=== PATIENT | male | born 1975 | race Caucasian/White ===

== ENCOUNTER 2022-10-21 16:25 | Outpatient (RCR) | payer OTHER, SELFPAY | END 2022-11-13 15:24 | disposition home or self-care (01) | LOC: PT 16:25 | PROVIDERS: PCP Student in an Organized Health Care Education/Training Program; Visit Provider Student in an Organized Health Care Education/Training Program | DX: M79.10 Myalgia, unspecified site (principal); M50.30 Other cervical disc degeneration, unspecified cervical region; M54.59 Other low back pain | CPT/HCPCS: 97110; 97140; 97162 ==

== ENCOUNTER 2022-12-16 10:09 | Emergency (ER) | payer OTHER, SELFPAY ==
[2022-12-16] VITALS (21 sets, daily range): BP systolic 97–113; BP diastolic 60–66; PULSE 46–64; RESP 13–19; TEMP 36.7; O2SAT 95; BMI 23.6
--- NOTE | 2022-12-16 10:21 | ECG_ITS ---
The 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
--- NOTE | 2022-12-16 10:21 | XR_ITS ---
The [address] [address] Patient Name: MOHINI MAURICE MRN: [id number] date: 1975 Sex: M Assigned Patient Location: ED.MAIN Current Patient Location: ED.MAIN Accession/Order Number: [id number] Exam Date: 12/16/2022 10:38 Report Date: 12/16/2022 11:16 At the request of: VICKY KAPOOR Procedure: XR lumbar spine 2-3V EXAMINATION: XR lumbar spine 2-3V, [id number] HISTORY: low back pain, no trauma COMPARISON: CT abdomen/pelvis 11/28/2020 FINDINGS: There are 5 nonrib-bearing lumbar-type vertebral bodies. No acute fracture or suspicious osseous lesion. Spinal alignment is within normal limits. Moderate disc height loss and mild osteophytosis at L5-S1. Mild disc height loss and mild osteophytosis at L1-L2, similar. Soft tissues are within normal limits. XR/XR lumbar spine 2-3V IMPRESSION: 1. No acute osseous abnormality. 2. Moderate spondylosis at L5-S1, not appreciably changed compared with 11/28/2020. Electronically authenticated by: HILDA FLOYD Date: 12/16/2022 11:16
[2022-12-16 10:43] LABS: Basophils Absolute Auto 0.1 10^3/uL (0.0-0.1); Basophils Percent Auto 0.9 % (0.2-2.0); Eosinophils Absolute Auto 0.3 10^3/uL (0.0-0.7); Eosinophils Percent Auto 2.3 % (0.9-7.0); Hematocrit 41.5 % (42.0-54.0); Hemoglobin 14.3 g/dL (14.0-18.0); Immature Granulocytes Abs Auto 0.07 10^3/uL (0.00-0.03); Immature Granulocytes Pct Auto 0.6 % (0.0-0.5); Lymphocytes Absolute Auto 2.6 10^3/uL (1.2-3.8); Lymphocytes Percent Auto 23.6 % (20.5-60.0); Mean Corpuscular HGB Conc 34.5 g/dL (29.9-35.2); Mean Corpuscular Hemoglobin 29.7 pg (25.9-34.0); Mean Corpuscular Volume 86.3 fL (80.0-94.0); Mean Platelet Volume 10.4 fL (9.5-13.5); Monocytes Absolute Auto 0.6 10^3/uL (0.3-0.8); Monocytes Percent Auto 5.2 % (1.7-12.0); Neutrophils Absolute Auto 7.5 10^3/uL (1.4-6.5); Neutrophils Percent Auto 67.4 % (43.0-75.0); Platelet Count 195 10^3/uL (150-450); Red Blood Count 4.81 10^6/uL (4.70-6.10); White Blood Count 11.1 10^3/uL (4.0-11.0)
[2022-12-16 10:47] LABS: Bilirubin Urine NEGATIVE (NEGATIVE); Blood Urine NEGATIVE (NEGATIVE); Clarity Urine CLEAR (CLEAR); Color Urine LT. YELLOW (YELLOW); Glucose Urine UA NEGATIVE (NEGATIVE); Ketones Urine NEGATIVE (NEGATIVE); Leukocyte Esterase Urine NEGATIVE (NEGATIVE); Nitrite Urine NEGATIVE (NEGATIVE); Protein Urine NEGATIVE (NEG/TRACE); Urobilinogen Urine 0.2 EU/dL (0.2-1.0)
[2022-12-16 10:52] LABS: Bacteria Urine NONE SEEN #/HPF (NONE SEEN); Cast Seen? NONE SEEN #/LPF (NONE SEEN); Crystals Seen? None Seen #/HPF (None Seen); Mucus Urine NONE SEEN (NONE SEEN); RBC Urine NONE SEEN #/HPF (0-2); Squamous Epithelial Cell Urine RARE #/LPF (NONE/RARE); Urine Culture Indicated NO; WBC Urine NONE SEEN #/HPF (NONE SEEN)
[2022-12-16 10:58] LABS: BUN Creatinine Ratio 9.9; Calcium 9.2 mg/dL (8.5-10.1); Carbon Dioxide 33.4 mmol/L (21.0-32.0); Chloride 100 mmol/L (98-107); Estimated GFR (African America 60 (>=60); Estimated GFR (Non-African Ame 49 (>=60); Glucose 120 mg/dL (74-106); Potassium 3.4 mmol/L (3.5-5.1); Sodium 140 mmol/L (136-145)
--- NOTE | 2022-12-16 12:27 | ED_ITS ---
HPI - Back Pain/Injury General Chief Complaint: Back Pain/Injury Stated Complaint: ABD PAIN/BACK PAIN Time Seen by Provider: 12/16/22 10:16 Source: patient Mode of arrival: walk-in Limitations: no limitations History of Present Illness HPI Narrative: 47-year-old male presents for lower back pain. He was having pain and he felt like he was going pass out at work. It doesn't radiate. He's had no dysuria or hematuria and there is been no injury or fall. He is feeling much better now. He's been having symptoms for the past week or so. Related Data Home Medications Medication Instructions Recorded Confirmed alprazolam 0.5 mg tablet 0.5 mg PO QDAY PRN anxiety 12/16/22 12/16/22 atorvastatin 40 mg tablet 40 mg PO QDAY 12/16/22 12/16/22 gabapentin 400 mg capsule 400 mg PO Q12H 12/16/22 12/16/22 hydrochlorothiazide 12.5 mg tablet 12.5 mg PO QDAY 12/16/22 12/16/22 isosorbide mononitrate 30 mg 30 mg PO QDAY 12/16/22 12/16/22 tablet,extended release 24 hr losartan 25 mg tablet 25 mg PO QDAY 12/16/22 12/16/22 metaxalone 800 mg tablet 800 mg PO TID 12/16/22 12/16/22 metoprolol tartrate 100 mg tablet 100 mg PO Q12H 12/16/22 12/16/22 nifedipine 60 mg tablet,extended 60 mg PO Q12H 12/16/22 12/16/22 release potassium chloride 10 mEq 10 meq PO QDAY 12/16/22 12/16/22 tablet,extended release sertraline 100 mg tablet 200 mg PO Q24H 12/16/22 12/16/22 Previous Rx's Medication Instructions Recorded ibuprofen 800 mg tablet 800 mg PO Q8H PRN pain #20 tabs 12/16/22 methocarbamol 750 mg tablet 750 mg PO Q8H #20 tabs 12/16/22 Allergies Allergy/AdvReac Type Severity Reaction Status Date / Time No Known Drug Allergies Allergy Verified 12/16/22 10:14 Review of Systems ROS Narrative A ten point review of systems is negative except as noted above. Exam Narrative Exam Narrative: Nurses note and vital signs reviewed and patient is not hypoxic. General: The patient appears well and in no apparent distress. Patient is resting comfortably on cart. Skin: Warm, dry, no pallor noted. There is no rash noted. Head: Normocephalic, atraumatic Eye: Normal conjunctiva, no drainage Ears, Nose, Mouth, and Throat: oral mucosa is moist. Nares patent. Cardiovascular: Regular Rate and Rhythm Respiratory: Patient is in no distress, no accessory muscle use, lungs are clear to auscultation, no wheezing, rales or rhonchi Back: non-tender, no CVA tenderness bilaterally to percussion. GI: no tenderness to palpation, no masses appreciated. No rebound, guarding, or rigidity noted. Musculoskeletal: The patient has no evidence of calf tenderness, no pitting edema, symmetrical pulses noted bilaterally; back has no bruise or rash. Neurological: A&O, normal speech Psychiatric: Cooperative Constitutional Vital Signs, click to edit/add: Last Vital Signs Temp 98.0 F 12/16/22 10:14 Pulse 46 L 12/16/22 11:45 Resp 14 12/16/22 11:45 BP 106/66 12/16/22 11:45 Pulse Ox 95 12/16/22 10:14 Course Vital Signs Vital signs: Vital Signs Temperature 98.0 F 12/16/22 10:14 Pulse Rate 64 12/16/22 10:14 Respiratory Rate 18 12/16/22 10:14 Blood Pressure 97/60 12/16/22 10:14 Pulse Oximetry 95 12/16/22 10:14 Temperature 98.0 F 12/16/22 10:14 Pulse Rate 46 L 12/16/22 11:45 Respiratory Rate 14 12/16/22 11:45 Blood Pressure 106/66 12/16/22 11:45 Pulse Oximetry 95 12/16/22 10:14 MDM - Back Pain/Injury MDM Narrative Medical decision making narrative: his workup is negative. X-ray shows unchanged mild degenerative changes. He'll be treated symptomatically. This point I do not suspect a kidney stone. Treatment diagnosis and follow-up were discussed with the patient. Differential Diagnosis Differential diagnosis: Likely other (lumbar strain, kidney stone, urinary tract infection, acute kidney injury) Lab Data Labs: Lab Results 12/16/22 Range/Units 10:25 WBC 11.1 H (4.0-11.0) 10^3/uL RBC 4.81 (4.70-6.10) 10^6/uL Hgb 14.3 (14.0-18.0) g/dL Hct 41.5 L (42.0-54.0) % MCV 86.3 (80.0-94.0) fL MCH 29.7 (25.9-34.0) pg MCHC 34.5 (29.9-35.2) g/dL RDW 13.0 (11.0-15.0) % Plt Count 195 (150-450) 10^3/uL MPV 10.4 (9.5-13.5) fL Neut % (Auto) 67.4 (43.0-75.0) % Lymph % (Auto) 23.6 (20.5-60.0) % [place] % (Auto) 5.2 (1.7-12.0) % Eos % (Auto) 2.3 (0.9-7.0) % Baso % (Auto) 0.9 (0.2-2.0) % Neut # (Auto) 7.5 H (1.4-6.5) 10^3/uL Lymph # (Auto) 2.6 (1.2-3.8) 10^3/uL [place] # (Auto) 0.6 (0.3-0.8) 10^3/uL Eos # (Auto) 0.3 (0.0-0.7) 10^3/uL Baso # (Auto) 0.1 (0.0-0.1) 10^3/uL Abs Immat Gran (auto) 0.07 H (0.00-0.03) 10^3/uL Imm/Tot Granulo (auto) 0.6 H (0.0-0.5) % Sodium 140 (136-145) mmol/L Potassium 3.4 L (3.5-5.1) mmol/L Chloride 100 (98-107) mmol/L Carbon Dioxide 33.4 H (21.0-32.0) mmol/L Anion Gap 10.0 BUN 15.0 (7.0-18.0) mg/dL Creatinine 1.52 H (0.70-1.30) mg/dL Est GFR ( Amer) 60 (>=60) Est GFR (Non-Af Amer) 49 L (>=60) BUN/Creatinine Ratio 9.9 Glucose 120 H (74-106) mg/dL Calcium 9.2 (8.5-10.1) mg/dL Urine Color Lt. yellow (YELLOW) Urine Clarity Clear (CLEAR) Urine pH 7.0 (5.0-9.0) Ur Specific [place] 1.010 (1.005-1.025) Urine Protein Negative (NEG/TRACE) mg/dL Urine Glucose (UA) Negative (NEGATIVE) mg/dL Urine Ketones Negative (NEGATIVE) mg/dL Urine Occult Blood Negative (NEGATIVE) Urine Nitrite Negative (NEGATIVE) Urine Bilirubin Negative (NEGATIVE) Urine Urobilinogen 0.2 (0.2-1.0) EU/dL Ur Leukocyte Esterase Negative (NEGATIVE) Urine RBC None seen (0-2) #/HPF Urine WBC None seen (NONE SEEN) #/HPF Ur Squamous Epith Cells Rare (NONE/RARE) #/LPF Urine Crystals None seen (None Seen) #/HPF Urine Bacteria None seen (NONE SEEN) #/HPF Urine Casts None seen (NONE SEEN) #/LPF Urine Mucus None seen (NONE SEEN) Ur Culture Indicated? No Discharge Plan Discharge Chief Complaint: Back Pain/Injury Clinical Impression: Strain of lumbar region Patient Disposition: Home, Self-Care Time of Disposition Decision: 12:25 Condition: Good Mode of Transportation: Private Vehicle Prescriptions / Home Meds: New ibuprofen 800 mg tablet 800 mg PO Q8H PRN (Reason: pain) Qty: 20 0RF methocarbamol 750 mg tablet 750 mg PO Q8H Qty: 20 0RF No Action alprazolam 0.5 mg tablet 0.5 mg PO QDAY PRN (Reason: anxiety) atorvastatin 40 mg tablet 40 mg PO QDAY gabapentin 400 mg capsule 400 mg PO Q12H hydrochlorothiazide 12.5 mg tablet 12.5 mg PO QDAY isosorbide mononitrate 30 mg tablet extended release 24 hr 30 mg PO QDAY losartan 25 mg tablet 25 mg PO QDAY metaxalone 800 mg tablet 800 mg PO TID metoprolol tartrate 100 mg tablet 100 mg PO Q12H nifedipine 60 mg tablet extended release 60 mg PO Q12H potassium chloride 10 mEq tablet extended release 10 meq PO QDAY sertraline 100 mg tablet 200 mg PO Q24H Instructions: Low Back Strain (ED) Stand Alone Forms: Portal Instructions Referrals: AILYN ESCOBAR [Physician] - 1 week
== END 2022-12-16 12:52 | disposition home or self-care (01) ==
PROVIDERS: Emergency Provider Emergency Medicine
DX: S39.012A Strain of muscle, fascia and tendon of lower back, initial encounter (principal); X58.XXXA Exposure to other specified factors, initial encounter; Z79.899 Other long term (current) drug therapy
CPT/HCPCS: 36415; 72100; 80048; 81001; 85025; 93005; 99285

== ENCOUNTER 2022-12-23 10:05 | Emergency (ER) | payer OTHER, SELFPAY ==
[2022-12-23] VITALS (20 sets, daily range): BP systolic 85–110; BP diastolic 47–80; PULSE 50–67; RESP 12–22; TEMP 36.4; O2SAT 95–100; BMI 30.3
[2022-12-23 10:15] LABS: Glucometer 127 mg/dL (74-106)
--- NOTE | 2022-12-23 10:15 | ED_ITS ---
HPI - General Adult General Chief complaint: Dizziness Stated complaint: LOW BLOOD PRESS HIGH SUGAR Time Seen by Provider: 12/23/22 10:14 Source: patient Mode of arrival: Wheelchair History of Present Illness HPI narrative: Patient is a 47-year-old male who is presenting to the Emergency Room with chief complaint Of feeling lightheaded, dizzy, near syncopal. Patient was at work, patient works at [employer]. Patient is at bedside as well. Patient does take blood pressure medications. Patient also has diabetes. Patient's blood sugar was checked, it is slightly elevated. Patient has a mild headache to bilateral frontal at the base of the skull. Patient has chronic neck pain, lumbar pain, patient has a outpatient MRI scheduled in the next few weeks. 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 Stratton from [facility]. No excessive working, starting this weekend. No acute events this weekend. No recent traveling, no trauma. Patient has been drinking adequate amount of liquids per his history. Patient has minimal nausea earlier work today, not currently. He has no vision or hearing changes. No nausea, vomiting or diarrhea the weekend. NO Other acute complaints . All systems are negative except as noted/marked. All systems reviewed and otherwise negative. . Nurses note and vital signs reviewed and patient is not hypoxic. General: The patient appears well and in no apparent distress. Patient is resting comfortably on cart. Patient is not toxic, lethargic, or listless Skin: Warm, dry, no pallor noted. There is no rash noted. No petechiae, purpura. . Multiple tattoos, no acute secondary signs of infection. Head: Normocephalic, atraumatic Eye: Normal conjunctiva, no drainage, EOMI. PERRL Ears, Nose, Mouth, and Throat: oral mucosa is moist. Nares patent. Mouth without vesicles. Cardiovascular: Regular Rate and Rhythm, no murmur, gallop, rub Respiratory: Patient is in no distress, no accessory muscle use, lungs are clear to auscultation, no wheezing, rales or rhonchi Back: non-tender, no CVA tenderness bilaterally to percussion. No CT LS midline pain GI: soft, Minimal right upper quadrant tenderness palpation, no peritoneal signs, no flank pain bilateral, no tenderness to palpation, no masses appreciated. No rebound, guarding, or rigidity noted. No flank pain bilateral, No distention Musculoskeletal: Patient has full range of motion of all of the extremities, no motor, sensory, or focal neurological deficits Neurological: A&O x3, normal speech Psychiatric: Cooperative Related Data Home Medications Medication Instructions Recorded Confirmed alprazolam 0.5 mg tablet 0.5 mg PO QDAY PRN anxiety 12/16/22 12/23/22 atorvastatin 40 mg tablet 40 mg PO QDAY 12/16/22 12/23/22 gabapentin 400 mg capsule 400 mg PO Q12H 12/16/22 12/23/22 hydrochlorothiazide 12.5 mg tablet 12.5 mg PO QDAY 12/16/22 12/23/22 isosorbide mononitrate 30 mg 30 mg PO QDAY 12/16/22 12/23/22 tablet,extended release 24 hr losartan 25 mg tablet 25 mg PO QDAY 12/16/22 12/23/22 metaxalone 800 mg tablet 800 mg PO TID 12/16/22 12/23/22 metoprolol tartrate 100 mg tablet 100 mg PO Q12H 12/16/22 12/23/22 nifedipine 60 mg tablet,extended 60 mg PO Q12H 12/16/22 12/23/22 release potassium chloride 10 mEq 10 meq PO QDAY 12/16/22 12/23/22 tablet,extended release sertraline 100 mg tablet 200 mg PO Q24H 12/16/22 12/23/22 Previous Rx's Medication Instructions Recorded ibuprofen 800 mg tablet 800 mg PO Q8H PRN pain #20 tabs 12/16/22 methocarbamol 750 mg tablet 750 mg PO Q8H #20 tabs 12/16/22 Allergies Allergy/AdvReac Type Severity Reaction Status Date / Time No Known Drug Allergies Allergy Verified 12/23/22 10:12 [facility] Medical History (Updated 12/23/22 @ 12:16 by Cabrera Marquis MD) Surgical History (Updated 12/23/22 @ 11:04 by Efren Nunes RN) Exam Constitutional Vital Signs, click to edit/add: Last Vital Signs Temp 97.5 F L 12/23/22 10:09 Pulse 64 12/23/22 12:11 Resp 17 12/23/22 12:11 BP 101/61 12/23/22 12:11 Pulse Ox 97 12/23/22 12:11 O2 Del Method Room Air 12/23/22 10:09 Course Vital Signs Vital signs: Vital Signs Temperature 97.5 F L 12/23/22 10:09 Pulse Rate 54 L 12/23/22 10:09 Respiratory Rate 18 12/23/22 10:09 Blood Pressure 85/47 L 12/23/22 10:09 Pulse Oximetry 95 12/23/22 10:09 Oxygen Delivery Method Room Air 12/23/22 10:09 Temperature 97.5 F L 12/23/22 10:09 Pulse Rate 64 12/23/22 12:11 Respiratory Rate 17 12/23/22 12:11 Blood Pressure 101/61 12/23/22 12:11 Pulse Oximetry 97 12/23/22 12:11 Oxygen Delivery Method Room Air 12/23/22 10:09 Medical Decision Making MDM Narrative Medical decision making narrative: Patient's potassium was slightly low at 3.4. Patient's urine showed trace ketones and patient's BUN and creatinine of slightly elevated. Patient does have chronic kidney renal insufficiency. Patient blood pressure did improve with 1 L of IV fluids. Patient was given a 2nd liter of IV fluids, blood pressure at 12:1 5 PM was approximately 100 over 60s. Patient increase fluids at home. Education on low potassium levels was discussed at bedside and on discharge paperwork. Patient will follow-up with PCP, and more poorly follow-up with artificial insemination technician to see if there is any medication changes or dosing regimens that need to be addressed. Patient understands, no questions or patient and discharge Lab Data Lab results reviewed: Yes I reviewed the patient's lab results Labs: Lab Results 12/23/22 12/23/22 Range/Units 10:12 10:42 WBC 10.3 (4.0-11.0) 10^3/uL RBC 4.59 L (4.70-6.10) 10^6/uL Hgb 13.6 L (14.0-18.0) g/dL Hct 40.0 L (42.0-54.0) % MCV 87.1 (80.0-94.0) fL MCH 29.6 (25.9-34.0) pg MCHC 34.0 (29.9-35.2) g/dL RDW 12.7 (11.0-15.0) % Plt Count 155 (150-450) 10^3/uL MPV 10.9 (9.5-13.5) fL Neut % (Auto) 71.9 (43.0-75.0) % Lymph % (Auto) 19.2 L (20.5-60.0) % [place] % (Auto) 5.0 (1.7-12.0) % Eos % (Auto) 2.3 (0.9-7.0) % Baso % (Auto) 1.0 (0.2-2.0) % Neut # (Auto) 7.4 H (1.4-6.5) 10^3/uL Lymph # (Auto) 2.0 (1.2-3.8) 10^3/uL [place] # (Auto) 0.5 (0.3-0.8) 10^3/uL Eos # (Auto) 0.2 (0.0-0.7) 10^3/uL Baso # (Auto) 0.1 (0.0-0.1) 10^3/uL Abs Immat Gran (auto) 0.06 H (0.00-0.03) 10^3/uL Imm/Tot Granulo (auto) 0.6 H (0.0-0.5) % Sodium 140 (136-145) mmol/L Potassium 3.4 L (3.5-5.1) mmol/L Chloride 103 (98-107) mmol/L Carbon Dioxide 32.5 H (21.0-32.0) mmol/L Anion Gap 7.9 BUN 17.0 (7.0-18.0) mg/dL Creatinine 1.47 H (0.70-1.30) mg/dL Est GFR ( Amer) >60 (>=60) Est GFR (Non-Af Amer) 51 L (>=60) BUN/Creatinine Ratio 11.6 Glucose 100 (74-106) mg/dL Calcium 9.2 (8.5-10.1) mg/dL Magnesium 2.1 (1.8-2.4) mg/dL Total Bilirubin 0.5 (0.2-1.0) mg/dL AST 21 (15-37) U/L ALT 25 (16-63) U/L Alkaline Phosphatase 68 (46-116) U/L Total Creatine Kinase 84 (39-308) U/L Troponin I High Sens 5.2 (4.0-76.1) pg/mL Total Protein 7.2 (6.4-8.2) g/dL Albumin 4.1 (3.4-5.0) g/dL Globulin 3.1 g/dL Albumin/Globulin Ratio 1.3 Urine Color Yellow (YELLOW) Urine Clarity Clear (CLEAR) Urine pH 6.0 (5.0-9.0) Ur Specific [place] 1.015 (1.005-1.025) Urine Protein Trace (NEG/TRACE) mg/dL Urine Glucose (UA) Negative (NEGATIVE) mg/dL Urine Ketones Trace A (NEGATIVE) mg/dL Urine Occult Blood Negative (NEGATIVE) Urine Nitrite Negative (NEGATIVE) Urine Bilirubin Negative (NEGATIVE) Urine Urobilinogen 0.2 (0.2-1.0) EU/dL Ur Leukocyte Esterase Negative (NEGATIVE) POC Glucose 127 H (74-106) mg/dL Potassium 3.4, chronic renal insufficiency, slightly worse today. ECG Data Attestation: I personally reviewed and interpreted this ECG as follows: (EKG interpretation. Normal sinus rhythm at 51 beats minute. Normal axis deviation. No acute ST elevation, no acute ectopy. QTC of 402.) Discharge Plan Discharge Chief Complaint: Dizziness Clinical Impression: Dizziness, Hypokalemia Patient Disposition: Home, Self-Care Condition: Good Prescriptions / Home Meds: No Action alprazolam 0.5 mg tablet 0.5 mg PO QDAY PRN (Reason: anxiety) atorvastatin 40 mg tablet 40 mg PO QDAY gabapentin 400 mg capsule 400 mg PO Q12H hydrochlorothiazide 12.5 mg tablet 12.5 mg PO QDAY isosorbide mononitrate 30 mg tablet extended release 24 hr 30 mg PO QDAY losartan 25 mg tablet 25 mg PO QDAY metaxalone 800 mg tablet 800 mg PO TID metoprolol tartrate 100 mg tablet 100 mg PO Q12H nifedipine 60 mg tablet extended release 60 mg PO Q12H potassium chloride 10 mEq tablet extended release 10 meq PO QDAY sertraline 100 mg tablet 200 mg PO Q24H ibuprofen 800 mg tablet 800 mg PO Q8H PRN (Reason: pain) Qty: 20 0RF methocarbamol 750 mg tablet 750 mg PO Q8H Qty: 20 0RF Instructions: Hypokalemia (ED), Lightheadedness (ED), Dizziness (ED) Additional Instructions: Take daily men's multivitamins to help increase her potassium along with diet changes. Follow-up with your artificial insemination technician on the dosing of your blood pressure medication if there needs to be an adjustment. Follow-up with PCP as needed. Increase fluids. Stand Alone Forms: Portal Instructions Referrals: Physician,Non-Staff, MD [Primary Care Provider] - 1 week
--- NOTE | 2022-12-23 10:30 | ECG_ITS ---
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
[2022-12-23] MEDS: 0.9 % SODIUM CHLORIDE 1,000 ML 999 ML IV (10:49)
[2022-12-23 11:24] LABS: Bilirubin Urine NEGATIVE (NEGATIVE); Blood Urine NEGATIVE (NEGATIVE); Clarity Urine CLEAR (CLEAR); Color Urine YELLOW (YELLOW); Glucose Urine UA NEGATIVE (NEGATIVE); Ketones Urine TRACE mg/dL (NEGATIVE); Leukocyte Esterase Urine NEGATIVE (NEGATIVE); Nitrite Urine NEGATIVE (NEGATIVE); Protein Urine TRACE mg/dL (NEG/TRACE); Specific Gravity Urine 1.015 (1.005-1.025); Urobilinogen Urine 0.2 EU/dL (0.2-1.0)
[2022-12-23 11:25] LABS: Basophils Absolute Auto 0.1 10^3/uL (0.0-0.1); Eosinophils Absolute Auto 0.2 10^3/uL (0.0-0.7); Eosinophils Percent Auto 2.3 % (0.9-7.0); Hemoglobin 13.6 g/dL (14.0-18.0); Immature Granulocytes Abs Auto 0.06 10^3/uL (0.00-0.03); Immature Granulocytes Pct Auto 0.6 % (0.0-0.5); Lymphocytes Percent Auto 19.2 % (20.5-60.0); Mean Corpuscular Hemoglobin 29.6 pg (25.9-34.0); Mean Corpuscular Volume 87.1 fL (80.0-94.0); Mean Platelet Volume 10.9 fL (9.5-13.5); Monocytes Absolute Auto 0.5 10^3/uL (0.3-0.8); Neutrophils Absolute Auto 7.4 10^3/uL (1.4-6.5); Neutrophils Percent Auto 71.9 % (43.0-75.0); Platelet Count 155 10^3/uL (150-450); Red Blood Count 4.59 10^6/uL (4.70-6.10); Red Cell Distribution Width 12.7 % (11.0-15.0); White Blood Count 10.3 10^3/uL (4.0-11.0)
[2022-12-23 11:29] LABS: Urine Microscopic Indicated NO
[2022-12-23 11:31] LABS: Creatine Kinase 84 U/L (39-308)
[2022-12-23 11:32] LABS: Alanine Aminotransferase 25 U/L (16-63); Albumin Globulin Ratio 1.3; Albumin Level 4.1 g/dL (3.4-5.0); Alkaline Phosphatase 68 U/L (46-116); Anion Gap 7.9; Aspartate Amino Transferase 21 U/L (15-37); BUN Creatinine Ratio 11.6; Bilirubin Total 0.5 mg/dL (0.2-1.0); Calcium 9.2 mg/dL (8.5-10.1); Carbon Dioxide 32.5 mmol/L (21.0-32.0); Chloride 103 mmol/L (98-107); Estimated GFR (African America >60 (>=60); Estimated GFR (Non-African Ame 51 (>=60); Globulin 3.1 g/dL; Glucose 100 mg/dL (74-106); Magnesium 2.1 mg/dL (1.8-2.4); Potassium 3.4 mmol/L (3.5-5.1); Sodium 140 mmol/L (136-145); Total Protein 7.2 g/dL (6.4-8.2); Troponin I High Sensitivity 5.2 pg/mL (4.0-76.1)
--- NOTE | 2022-12-23 11:36 | XR_ITS ---
The [place] [address] Patient Name: MOHINI MAURICE MRN: [id number] date: 1975 Sex: M Assigned Patient Location: ER Current Patient Location: ER Accession/Order Number: [id number] Exam Date: 12/23/2022 11:28 Report Date: 12/23/2022 12:02 At the request of: NELSON ROBISON Procedure: XR chest 2V XR chest 2V, 12/23/2022 11:28 AM EDT, OH001 INDICATION: dizzy COMPARISON: None TECHNIQUE: Frontal and lateral views of the chest obtained. FINDINGS: The heart is normal in size. The aorta and mediastinum appear unremarkable. The pulmonary vasculature is normal. The lungs are clear. There is no evidence of pneumothorax or pleural effusion. The osseous structures appear intact. XR/XR chest 2V IMPRESSION: No active pulmonary process. Electronically authenticated by: ANTHONY ASENCIO Date: 12/23/2022 12:02
[2022-12-23] MEDS: 0.9 % SODIUM CHLORIDE 1,000 ML 1000 ML IV (12:22)
[2022-12-23] MEDS: POTASSIUM BICARBONATE/CIT 25 MEQ TABLET EFF 50 MEQ PO (12:22)
== END 2022-12-23 13:36 | disposition home or self-care (01) ==
PROVIDERS: Emergency Provider Emergency Medicine
DX: R42 Dizziness and giddiness (principal); E87.6 Hypokalemia; E11.22 Type 2 diabetes mellitus with diabetic chronic kidney disease; N18.9 Chronic kidney disease, unspecified; Z79.899 Other long term (current) drug therapy
CPT/HCPCS: 36415; 71046; 80053; 81003; 82550; 83735; 84484; 85025; 93005; 96360; 99285

== ENCOUNTER 2023-01-03 12:59 | Outpatient (OUT) | payer OTHER, SELFPAY ==
--- NOTE | 2023-01-03 13:27 | US_ITS ---
[address] [address] Patient Name: MOHINI MAURICE MRN: [id number] date: 1975 Sex: M Assigned Patient Location: CARD Current Patient Location: Accession/Order Number: [id number] Exam Date: 01/03/2023 13:38 Report Date: 01/05/2023 02:00 At the request of: DALIA RANGEL Procedure: US carotid duplex BI EXAMINATION: US carotid duplex BI HISTORY: Atherosclerosis Of Tribe Carotid Artery I25.10, Bradycardia COMPARISON: No relevant comparison available. TECHNIQUE: Duplex Doppler ultrasound analysis of carotid and vertebral arteries. . Bilateral carotid arterial duplex examination was performed using B-mode, color flow and spectral analysis. Carotid stenosis is reported according to validated velocity parameters, similar to NASCET criteria. FINDINGS: RIGHT CAROTID ARTERY: No visible stenosis or significant plaque. RIGHT VERTEBRAL: Antegrade flow. Subclavian: PSV: 188.8 cm/s EDV: 0.0 cm/s CCA: Prox: PSV: 105.0 cm/s EDV: 21.7 cm/s Mid: PSV: 79.1 cm/s EDV: 16.6 cm/s Distal: PSV: 83.7 cm/s EDV: 18.1 cm/s BULB: PSV: 71.5 cm/s EDV: 18.1 cm/s ICA: Prox: PSV: 65.8 cm/s EDV: 17.0 cm/s Mid: PSV: 59.7 cm/s EDV: 17.0 cm/s Distal: PSV: 102.8 cm/s EDV: 32.7 cm/s ECA: PSV: 85.2 cm/s EDV: 10.5 cm/s VERTEBRAL: PSV: 35.5 cm/s EDV: 11.3 cm/s ICA/CCA ratio: PSV: 1.2 EDV: 1.8 LEFT CAROTID ARTERY: No visible stenosis or significant plaque. LEFT VERTEBRAL: Antegrade flow. Subclavian: PSV: 157.6 cm/s EDV: 6.4 cm/s CCA: Prox: PSV: 151.0 cm/s EDV: 30.5 cm/s Mid: PSV: 126.9 cm/s EDV: 23.9 cm/s Distal: PSV: 102.8 cm/s EDV: 21.7 cm/s BULB: PSV: 76.1 cm/s EDV: 18.1 cm/s ICA: Prox: PSV: 92.8 cm/s EDV: 19.7 cm/s Mid: PSV: 53.8 cm/s EDV: 17.5 cm/s Distal: PSV: 59.8 cm/s EDV: 18.6 cm/s ECA: PSV: 85.2 cm/s EDV: 9.0 cm/s VERTEBRAL: PSV: 49.3 cm/s EDV: 17.2 cm/s ICA/CCA ratio: PSV: 0.9 EDV: 0.9 US/US carotid duplex BI IMPRESSION: 1. 0-49% flow stenosis within the right left carotid arteries. 2. No significant atherosclerotic plaque. Electronically authenticated by: PAULA CHIRINOS Date: 01/05/2023 02:00
--- NOTE | 2023-01-03 13:36 | CA_ITS ---
Patient: MOHINI MAURICE Exam Date: 01/03/2023 : 1975 Gender:M Ordering : DALIA RANGEL Admission #: [id number] Family : BRIAN MAR . Order #: [id number] CLICK HERE TO VIEW EXAM ECHOCARDIOGRAM REPORT PROCEDURE: CA ECHO DOPPLER COMPLETE INDICATIONS: Bradycardia, hypotension, congenital anomaly of coronary artery COMPARISON: None. DESCRIPTION: COMPLETE ECHOCARDIOGRAM Real-time transthoracic echocardiography with 2D, M-mode, spectral and color flow Doppler performed. QUALITY: Technical quality was good. LEFT VENTRICLE: Normal chamber size. Normal left ventricular wall thickness. LV EF: Global left ventricular systolic function is hyperdynamic; visually estimated ejection fraction is 65 to 70%. No segmental wall motion abnormalities. DIASTOLIC: Normal diastolic function. ATRIAL SEPTUM: Visually appears intact. LEFT ATRIUM: Normal chamber size. RIGHT ATRIUM: Normal chamber size. RIGHT VENTRICLE: Normal chamber size. Normal right ventricular systolic function. TRICUSPID VALVE: Normal mobility and thickness. No stenosis with trivial regurgitation. No evidence of pulmonary hypertension. RVSP 25 mmHg MITRAL VALVE: Normal mobility and thickness. No evidence of mitral valve stenosis. There is no mitral annular calcification. Trivial mitral regurgitation. AORTIC VALVE: Normal trileaflet appearance. No visible sclerosis. Normal leaflet mobility. No evidence of aortic valve stenosis. No aortic regurgitation. AORTIC ROOT: Normal diameter and appearance. PULMONIC VALVE: Normal thickness and mobility. No stenosis. No regurgitation. PERICARDIUM: Anterior fee space; trivial effusion versus fat pad. IVC: Collapses with inspirations. CONCLUSION: 1. Global left ventricular systolic function is hyperdynamic; visually estimated ejection fraction is 65 to 70% 2. Normal diastolic function 3. The right ventricle is normal in size and systolic function 4. No significant valvular abnormalities 5. Anterior free space; trivial effusion versus fat pad Adult Echocardiography Procedure Report Left Ventricle LVEDD (3.7 - 5.6 cm): 4.06 cm LVESD (2.2 - 4.0 cm): 2.21 cm LVIVS thickness (0.6 - 1.2 cm): 1.07 cm LVPW thickness (0.5 - 1.0 cm): 1.04 cm e': 0.11 m/s E - e': 5.36 LVOT Max Gradient: 7.70 mm[Hg] LVOT Area (cm2): 1.39 m/s Peak Velocity (LVOT): 1.39 m/s Mean Velocity (LVOT): 1.04 m/s LVOT Diameter 2.33 cm Left Atrium LA Volume Index (2D A2C): 26.70 ml/m2 Left Atrium Systolic Dimension: 3.69 cm Mitral Valve MV E to A Ratio: 1.02, 0.95 Mitral Valve A-Wave Peak Velocity: 0.62 m/s Mitral Valve E-Wave Peak Velocity: 0.61 m/s Right Ventricle Aorta AO Root Diam: 3.00 cm Ascending Ao Diam: 2.42 cm Aortic Valve AoV Area (Peak Papo): 3.44 cm2, 3.44 cm2 AoV Area (VTI): 3.36 cm2, 3.36 cm2 Peak Velocity(Antegrade Flow): 1.72 m/s Peak Gradient(Antegrade Flow): 11.81 mm[Hg] Mean Velocity(Antegrade Flow): 1.14 m/s Mean Gradient(Antegrade Flow): 5.94 mm[Hg] Velocity Time Integral: 35.38 cm Tricuspid Valve Peak Velocity (Regurgitant Flow): 2.32 m/s Pulmonic Valve Mean Gradient: 2.32 mm[Hg] Mean Velocity: 0.71 m/s Peak Velocity: 0.98 m/s, 1.08 m/s Peak Gradient: 3.87 mm[Hg], 4.68 mm[Hg] Right Atrium Right Atrium Systolic Pressure: 28.55 ml, 28.55 ml Dictated by: Jessica Mathews M.D. on 01/03/2023 at 17:08 Approved by: Jessica Mathews M.D. on 01/03/2023 at 17:12
== END 2023-01-03 13:00 | disposition home or self-care (01) ==
LOC: CARD 12:59
PROVIDERS: Visit Provider Nurse Practitioner
DX: I25.10 Atherosclerotic heart disease of native coronary artery without angina pectoris (principal); R00.1 Bradycardia, unspecified; I95.2 Hypotension due to drugs; Q24.5 Malformation of coronary vessels
CPT/HCPCS: 93306; 93880

== ENCOUNTER 2023-06-10 13:08 | Outpatient (OUT) | payer OTHER, SELFPAY ==
[2023-06-10 13:24] LABS: Basophils Absolute Auto 0.1 10^3/uL (0.0-0.1); Basophils Percent Auto 1.1 % (0.2-2.0); Eosinophils Absolute Auto 0.3 10^3/uL (0.0-0.7); Eosinophils Percent Auto 2.7 % (0.9-7.0); Hematocrit 41.8 % (42.0-54.0); Hemoglobin 14.3 g/dL (14.0-18.0); Immature Granulocytes Abs Auto 0.05 10^3/uL (0.00-0.03); Immature Granulocytes Pct Auto 0.5 % (0.0-0.5); Lymphocytes Absolute Auto 2.8 10^3/uL (1.2-3.8); Lymphocytes Percent Auto 28.8 % (20.5-60.0); Mean Corpuscular HGB Conc 34.2 g/dL (29.9-35.2); Mean Corpuscular Hemoglobin 29.1 pg (25.9-34.0); Mean Corpuscular Volume 85.1 fL (80.0-94.0); Mean Platelet Volume 9.9 fL (9.5-13.5); Monocytes Absolute Auto 0.6 10^3/uL (0.3-0.8); Neutrophils Absolute Auto 5.8 10^3/uL (1.4-6.5); Neutrophils Percent Auto 60.9 % (43.0-75.0); Platelet Count 136 10^3/uL (150-450); Red Blood Count 4.91 10^6/uL (4.70-6.10); Red Cell Distribution Width 12.5 % (11.0-15.0); White Blood Count 9.6 10^3/uL (4.0-11.0)
[2023-06-10 13:42] LABS: Anion Gap 11.8; BUN Creatinine Ratio 12.6; Calcium 8.6 mg/dL (8.5-10.1); Carbon Dioxide 31.7 mmol/L (21.0-32.0); Chloride 103 mmol/L (98-107); Estimated GFR (African America >60 (>=60); Estimated GFR (Non-African Ame >60 (>=60); Glucose 75 mg/dL (74-106); Potassium 3.5 mmol/L (3.5-5.1); Sodium 143 mmol/L (136-145)
== END 2023-06-10 13:09 | disposition home or self-care (01) ==
LOC: LAB 13:09
PROVIDERS: PCP Family Medicine; Visit Provider Internal Medicine Cardiovascular Disease
DX: I47.29 Other ventricular tachycardia (principal)
CPT/HCPCS: 36415; 80048; 85025

== ENCOUNTER 2024-06-23 09:54 | Outpatient (RCR) | payer OTHER, SELFPAY | END 2024-07-10 06:52 | disposition home or self-care (01) | LOC: PT 09:54 | PROVIDERS: PCP Family Medicine | DX: M47.816 Spondylosis without myelopathy or radiculopathy, lumbar region (principal) | CPT/HCPCS: 97110; 97113; 97162 ==